=== PATIENT | female | born 1995 | race Caucasian/White ===

== ENCOUNTER 2017-05-20 20:30 | Inpatient (IN) | payer OTHER, MEDICAID ==
[~2017-05-20] VITALS: Ht 157.5 cm; Wt 67.0 kg
[2017-05-20 20:34] VITALS: BP 135/74; PULSE 112; RESP 18; TEMP 98.6
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
[2017-05-20] MEDS ORDERED: FAMOTIDINE 20 MG/2 ML VIAL IV PUSH ONE (20:45)
[2017-05-20] MEDS ORDERED: PANTOPRAZOLE SODIUM 40 MG VIAL IVP ONE (20:45)
[2017-05-20] MEDS ORDERED: ACETAMINOPHEN 325 MG TAB PO ONE (21:15)
[2017-05-20] MEDS ORDERED: ONDANSETRON HCL 4 MG/2 ML VIAL IV PUSH ONE (21:15)
[2017-05-20] MEDS ORDERED: Post-op Orders (for Pharmacy) MISC XX ONE (21:45)
[2017-05-20] MEDS ORDERED: ONDANSETRON HCL 4 MG/2 ML VIAL IV PRN (21:45)
[2017-05-20] MEDS ORDERED: NALOXONE HCL 0.4 MG/ML AMP IV PRN (21:45)
[2017-05-20] MEDS ORDERED: SODIUM CHLORIDE 0.9% FLUSH 10 ML FLUSH IV FLUSH PRN (21:45)
[2017-05-20] MEDS ORDERED: PANTOPRAZOLE SODIUM 40 MG VIAL IV SCH (22:00)
[2017-05-20] MEDS: LACTATED RINGER'S 1000 ML INJ 1,000 ML IV SCH (22:09)
[2017-05-20 22:20] VITALS: BP 123/69; PULSE 99; RESP 16; TEMP 97.5; O2SAT 100
[2017-05-21 04:00] VITALS: BP 113/53; PULSE 97; RESP 16; TEMP 98.1; O2SAT 100
[2017-05-21] MEDS: MORPHINE SULFATE 4 MG/ML INJ IV PRN ×2 (06:15→10:44)
[2017-05-21 07:14] LABS: AUTOMATED NEUTROPHIL # 12.2 TH/MM3 (1.8-7.7); BASOPHIL % 0.2 % (0.0-2.0); EOSINOPHIL % 0.1 % (0.0-4.0); HEMATOCRIT 32.3 % (35.0-46.0); HEMO FLAGS DIFF FINAL; LYMPH % 11.4 % (9.0-44.0); LYMPHOCYTE # 1.7 TH/MM3 (1.0-4.8); MEAN CORPUSCULAR HEMOGLOBIN 28.9 PG (27.0-34.0); MEAN CORPUSCULAR HGB CONC 34.4 % (32.0-36.0); MONO % 5.6 % (0.0-8.0); NEUT % 82.7 % (16.0-70.0); PLATELET COUNT 254 TH/MM3 (150-450); RED BLOOD COUNT 3.84 MIL/MM3 (4.00-5.30); RED CELL DISTRIBUTION WIDTH 13.2 % (11.6-17.2); WHITE BLOOD COUNT 14.8 TH/MM3 (4.0-11.0)
[2017-05-21 07:37] LABS: BICARBONATE 23.9 MEQ/L (21.0-32.0); POTASSIUM 3.5 MEQ/L (3.5-5.1)
[2017-05-21 07:41] LABS: INDIRECT BILIRUBIN 0.4 MG/DL (0.0-0.8); TOTAL BILIRUBIN ADULT 0.5 MG/DL (0.2-1.0)
[2017-05-21 07:47] VITALS: BP 101/59; PULSE 93; RESP 18; TEMP 98.1; O2SAT 100
[2017-05-21] MEDS: LACTATED RINGER'S 1000 ML INJ 1,000 ML IV SCH ×3 (08:00→17:43)
[2017-05-21] MEDS ORDERED: SODIUM CHLORIDE 0.9% FLUSH 10 ML FLUSH IV FLUSH SCH (09:00)
[2017-05-21 10:01] LABS: BLOOD, URINE NEG (NEG); GLUCOSE,URINE NEG (NEG); KETONE, URINE TRACE mg/dL (NEG); MUCUS URINE FEW /lpf (OCC); NITRITE,URINE NEG (NEG); PH, URINE 7.5 (5.0-8.5); SQUAMOUS EPITHELIAL CELL URINE 1 /hpf (0-5); URINE COLOR YELLOW (YELLW/STRAW)
[2017-05-21 10:02] LABS: COMMENT (UR) CULT NOT INDICATED; CULTURE IF INDICATED CULT NOT INDICATED
[2017-05-21] MEDS ORDERED: PERC5TAB12 PO (10:39)
[2017-05-21 10:40] VITALS: O2SAT 100
[2017-05-21] MEDS ORDERED: ZOFR4TAB3 SL (11:12)
[2017-05-21 11:39] VITALS: BP 119/74; PULSE 84; RESP 18; TEMP 96.6; O2SAT 100
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
[2017-05-21 16:00] VITALS: BP 116/59; PULSE 79; RESP 18; TEMP 98.2; O2SAT 100
== END 2017-05-21 19:20 | disposition home or self-care (01) | DRG 965 ==
LOC: NEPE 20:30 → NEDA 20:38 → N06B 22:15
PROVIDERS: ADMIT Surgery; ATTEND Surgery
DX: S02.119A Unspecified fracture of occiput, initial encounter for closed fracture (principal); S36.521A Contusion of transverse colon, initial encounter; S06.890A Other specified intracranial injury without loss of consciousness, initial encounter; W18.39XA Other fall on same level, initial encounter; R55 Syncope and collapse
CPT/HCPCS: 70450; 71010; 72125; 74177; 80048; 80053; 80076; 81001; 85025; 93005; 94150; C9113; J2270; J2405; J7030; J7120; Q9967